=== PATIENT | female | born 1945 | race Caucasian/White ===

== ENCOUNTER 2020-01-12 15:51 | Emergency (ER) | payer OTHER ==
[2020-01-12 16:17] VITALS: BP 148/69; PULSE 63; TEMP 98.2; BMI 24.4
[2020-01-12] MEDS ORDERED: ACETAMINOPHEN 325 MG TABLET (FP) PO ONE (16:59)
--- NOTE | 2020-01-12 16:59 | PDOC ---
History of Present Illness - General Chief Complaint: Pain Stated Complaint: RT LEG PAIN Time Seen by Provider: 01/12/20 15:54 History Source: Patient Exam Limitations: No Limitations - History of Present Illness Initial Comments: 74 yo F with a hx of HLD presents to the emergency department with lower back pain that has been ongoing for 2 weeks. Per the patient, she said the lower back pain developed spontaneously with no inciting event or trauma to the back that is bilateral. The patient states that since Thursday, she has developed pain radiating from the right lower back to the lateral and anterior thigh without motor or sensation deficit. Denies urinary incontinence or bowel incontinence. Denies the following: fever, chills, SOB, chest pain, abdominal pain, unsteady gait, chest pain, palpitations, and upper back pain. 01/12/20 19:25 01/12/20 19:29 Past History - Past Medical History Allergies/Adverse Reactions: Allergies Allergy/AdvReac Type Severity Reaction Status Date / Time No Known Allergies Allergy Verified 01/12/20 15:59 Home Medications: Ambulatory Orders Hydrocodone/Acetaminophen [Hydrocodone-Acetamin 5-325 mg] 1 each PO DAILY PRN 01/12/20 COPD: No - Immunization History Immunization Up to Date: Yes - Psycho Social/Smoking Cessation Hx Smoking History: Never smoked Have you smoked in the past 12 months: No Information on smoking cessation initiated: No Hx Alcohol Use: No Drug/Substance Use Hx: No *Physical Exam - Vital Signs Last Vital Signs Temp Pulse Resp BP Pulse Ox 98.2 F 63 20 148/69 95 01/12/20 15:52 01/12/20 15:52 01/12/20 15:52 01/12/20 15:52 01/12/20 15:52 Medical Decision Making - Medical Decision Making 01/12/20 19:31 [address] results of the [address] of the lower spine Discharge - Discharge Information Problems reviewed: Yes Clinical Impression/Diagnosis: Lower back pain Disposition: HOME - Admission No - Follow up/Referral Referrals: [facility] – [place], [place] [facility] at [place] [Provider Group] - Patient Discharge Instructions Patient Printed Discharge Instructions: DI for Low Back Pain, DI for Sciatica, DI for Back Pain With Sciatica Additional Instructions: You were seen in the emergency department for the evaluation of your lower back pain. Please follow up with your primary medical doctor within 1 week after discharge for follow up care and management. Please return to the emergency department if you have worsening symptoms or new concerning symptoms. Thank you. Please take tylenol and motrin for pain control as needed and directed on the label. - Post Discharge Activity
[2020-01-12] MEDS ORDERED: LIDOCAINE 5% TOPICAL PATCH TP ONE (17:27)
[2020-01-12] MEDS ORDERED: KETOROLAC TROMETHAMINE 30 MG/1 ML VIAL IM ONE (17:27)
[2020-01-12] MEDS ORDERED: CYCLOBENZAPRINE HCL 5 MG TABLET PO ONE (17:27)
[2020-01-12] MEDS ORDERED: CYCLOBENZAPRINE HCL 10 MG TABLET (FP) ONE (17:43)
[2020-01-12] MEDS ORDERED: KETOROLAC TROMETHAMINE 30 MG/1 ML VIAL ONE (17:43)
[2020-01-12] MEDS ORDERED: LIDOCAINE 5% TOPICAL PATCH ONE (17:43)
--- NOTE | 2020-01-12 18:08 | PDOC ---
Attending Attestation - Resident Resident Name: Pan Doan - ED Attending Attestation I have performed the following: I have examined & evaluated the patient, The case was reviewed & discussed with the resident, I agree w/resident's findings & plan - HPI HPI: 01/12/20 18:10 74 YOF with presenting with right buttock/leg pain x 2 weeks, worse with movement and walking atraumatic no bowel or bladder incontinence, no retention, no abdominal pain, weakness or paresthesias. no f/c no recent procedures or IVDU, no lumbar procedures or injections. pt has been taking home vicodin/oxycodone prn for pain, only mild relief. last dose of oxycodone earlier this afternoon. 01/12/20 18:11 - Physicial Exam PE: 01/12/20 18:07 Agree with the resident's HPI and PE as documented in the electronic medical record. NAD, EOMI, PERRL, nl conjunctiva, anicteric; neck supple. lungs clear, RRR, abdomen soft nontender. no rebound, guarding. Back +lumbar TTP. Neg SLR b/l. 5/5 plantar and dorsiflexion, 5/5 strength in prox and distal extremities. SILT L1- S1 distribution.. MEADOWS x4, no focal neuro deficits. No peripheral edema. normal color for ethnicity, WWP. - Medical Decision Making 01/12/20 18:08 Vital Signs Temp Pulse Resp BP Pulse Ox 98.2 F 63 20 148/69 95 01/12/20 15:52 01/12/20 15:52 01/12/20 15:52 01/12/20 15:52 01/12/20 15:52 DDx back pain: back strain, lumbago, sciatica, radiculopathy, spinal stenosis. Muscle spasm. Lumbar radiculopathy. No risk factors or findings concerning for epidural abscess, discitis, vertebral osteomyelitis, cord compression, cauda equina, vertebral fracture or bone malignancy, AAA, or pyelonephritis. Clinically doubt based on exam and clinical history: cord compression or cauda equina, with low suspicion and NO red flag sx such as malignancy, weight loss, trauma, fevers, IVDU, lumbar/spinal procedures, bowel and bladder incontinence/retention, urinary sx, neurologic deficits or changes. pt given analgesia here, flexeril muscle relaxant and lidoderm patch, reassess s/o to Dr Perez pending CT lumbar spine, and reeval /dispo 01/15/20 08:18 Discharge - Discharge Information Problems reviewed: Yes Clinical Impression/Diagnosis: Lower back pain Condition: Stable Disposition: HOME - Additional Discharge Information Prescriptions: Cyclobenzaprine HCl [Flexeril -] 5 mg PO HS #14 tablet Ibuprofen 600 mg PO TID PRN #30 tablet MDD 3 PRN Reason: Pain - Follow up/Referral Referrals: [facility] – [place] [facility] at [place] [Provider Group] - Patient Discharge Instructions Patient Printed Discharge Instructions: DI for Low Back Pain, DI for Sciatica, DI for Back Pain With Sciatica Additional Instructions: You were seen in the emergency department for the evaluation of your lower back pain. Please follow up with your primary medical doctor within 1 week after discharge for follow up care and management. Please return to the emergency department if you have worsening symptoms or new concerning symptoms. Thank you. Please take tylenol and motrin for pain control as needed and directed on the label. - Post Discharge Activity
--- NOTE | 2020-01-12 21:11 | PDOC ---
*Physical Exam - Vital Signs Last Vital Signs Temp Pulse Resp BP Pulse Ox 98.2 F 63 20 148/69 95 01/12/20 15:52 01/12/20 15:52 01/12/20 15:52 01/12/20 15:52 01/12/20 15:52 - Physical Exam 01/12/20 21:10 pt awake alert NAD ambulating without difficulty ED Treatment Course - Medications Given in the ED: ED Medications Discontinued Medications Generic Name Dose Route Start Last Admin Trade Name Janet PRN Reason Stop Dose Admin Acetaminophen 975 mg 01/12/20 16:59 01/12/20 17:09 Tylenol - PO 01/12/20 17:00 Not Given ONCE ONE Cyclobenzaprine HCl 5 mg 01/12/20 17:27 01/12/20 17:44 Cyclobenzaprine Hcl PO 01/12/20 17:28 5 mg ONCE ONE Administration Ketorolac Tromethamine 30 mg 01/12/20 17:27 01/12/20 17:46 Toradol Injection - IM 01/12/20 17:28 30 mg ONCE ONE Administration Lidocaine 1 patch 01/12/20 17:27 01/12/20 17:44 Lidoderm Patch - TP 01/12/20 17:28 1 patch ONCE ONE Administration Medical Decision Making - Medical Decision Making 01/12/20 21:10 assumed care of pt at [address] lumbar spine. pt ct no acute disease process. ammbulating without difficulty. mild improvement to pain. will given rx for flexeril and motrin 600/ told to fu with pcp. Discharge - Discharge Information Problems reviewed: Yes Clinical Impression/Diagnosis: Lower back pain Disposition: HOME - Additional Discharge Information Prescriptions: Cyclobenzaprine HCl [Flexeril -] 5 mg PO HS #14 tablet Ibuprofen 600 mg PO TID PRN #30 tablet MDD 3 PRN Reason: Pain - Follow up/Referral Referrals: [facility] – [place] [facility] at [place] [Provider Group] - Patient Discharge Instructions Patient Printed Discharge Instructions: DI for Low Back Pain, DI for Sciatica, DI for Back Pain With Sciatica Additional Instructions: You were seen in the emergency department for the evaluation of your lower back pain. Please follow up with your primary medical doctor within 1 week after discharge for follow up care and management. Please return to the emergency department if you have worsening symptoms or new concerning symptoms. Thank you. Please take tylenol and motrin for pain control as needed and directed on the label. - Post Discharge Activity
[2020-01-12] MEDS ORDERED: LIDOCAINE PATCH REMOVAL MC SCH (22:00)
== END 2020-01-12 21:18 | disposition home or self-care (01) ==
LOC: FER 15:51
PROC: 3E0233Z Introduction of Anti-inflammatory into Muscle, Percutaneous Approach (ICD-10-PCS; principal; 2020-01-12)
DX: M54.5 Low back pain (principal); E78.5 Hyperlipidemia, unspecified
CPT/HCPCS: 72131-TC; 99284-25

== ENCOUNTER 2020-10-17 08:23 | Day surgery (SDC) | payer OTHER ==
[2020-10-15 17:35] VITALS: BMI 22.9
[2020-10-17] MEDS ORDERED: PROPOFOL 20 ML ONE ×3 (08:48)
[2020-10-17] MEDS ORDERED: LIDOCAINE HCL/PF 2% SDV 5ML VIAL ONE (08:48)
[2020-10-17 10:14] VITALS: TEMP 98
[2020-10-17 10:49] VITALS: BP 130/77; PULSE 70
== END 2020-10-17 10:50 | disposition home or self-care (01) ==
LOC: FASU-ENDO 08:23
PROVIDERS: ATTEND Internal Medicine Gastroenterology
PROC: 0DB68ZX Excision of Stomach, Via Natural or Artificial Opening Endoscopic, Diagnostic (ICD-10-PCS; 2020-10-17)
PROC: 0DB98ZX Excision of Duodenum, Via Natural or Artificial Opening Endoscopic, Diagnostic (ICD-10-PCS; principal; 2020-10-17 09:49)
DX: K29.50 Unspecified chronic gastritis without bleeding (principal); K31.9 Disease of stomach and duodenum, unspecified; R10.13 Epigastric pain
CPT/HCPCS: 88305-TC; 88342-TC